=== PATIENT | female | born 1965 | race Caucasian/White ===

== ENCOUNTER → 2019-02-15 15:36 | Outpatient (CLI) | payer OTHER, SELFPAY ==
--- NOTE | 2019-02-15 15:40 | DI.RAD.S_ITS ---
PROCEDURE: XR FOOT RT MIN 3V INDICATIONS: jammed foot, pain, swelling, to distal plantar aspect r/o fx TECHNIQUE: 3 views of the foot were acquired. COMPARISON: None. FINDINGS: Bones: No fractures or dislocations. No suspicious bony lesions. Chronic appearing spurring and/or ununited osteophyte seen at the second and third MTP joints as well as the great toe interphalangeal joint. Soft tissues: No tibiotalar joint effusion. Achilles tendon appears normal. IMPRESSION: No fracture. If the patient's symptoms do not improve recommend followup radiographs in 10 days to assess for healing sclerosis/occult injury. Dictated by: Joseph Moya M.D. on 02/15/2019 at 16:23 Approved by: Joseph Moya M.D. on 02/15/2019 at 16:26
== END ==
PROVIDERS: Visit Provider Physician Assistant
DX: S99.921A Unspecified injury of right foot, initial encounter (principal); M79.671 Pain in right foot; M79.89 Other specified soft tissue disorders; W22.8XXA Striking against or struck by other objects, initial encounter
CPT/HCPCS: 73630

== ENCOUNTER → 2019-12-06 12:28 | Outpatient (CLI) | payer OTHER, SELFPAY ==
--- NOTE | 2019-12-06 12:29 | DI.RAD.S_ITS ---
PROCEDURE: XR HAND RT MIN 3V INDICATIONS: fall, proximal palm of hand pain, r/o fx TECHNIQUE: 3 views of the hand(s) acquired. COMPARISON: None. FINDINGS: Bones: No fractures or dislocations. Carpal bones are normally aligned. No suspicious bony lesions. Soft tissues: No suspicious soft tissue calcifications. IMPRESSION: No acute right hand fracture or dislocation. Dictated by: Terell Viveros M.D. on 12/06/2019 at 12:09 Approved by: Terell Viveros M.D. on 12/06/2019 at 12:11
--- NOTE | 2019-12-06 12:29 | DI.RAD.S_ITS ---
PROCEDURE: XR TIBIA FIBULA RT 2V INDICATIONS: fall, r/o fx distal knee pain TECHNIQUE: 2 views of the tibia and fibula were acquired. COMPARISON: None. FINDINGS: Bones: No fractures or dislocations. No suspicious bony lesions. Soft tissues: No suspicious soft tissue calcifications or masses. IMPRESSION: No acute lower leg fracture or dislocation. Dictated by: Terell Viveros M.D. on 12/06/2019 at 12:32 Approved by: Terell Viveros M.D. on 12/06/2019 at 12:39
--- NOTE | 2019-12-06 12:29 | DI.RAD.S_ITS ---
PROCEDURE: XR KNEE LT 3V INDICATIONS: fall, proximal palm of hand pain, r/o fx TECHNIQUE: 3 views of the knee were acquired. COMPARISON: None. FINDINGS: Bones: No fractures or dislocations. No suspicious bony lesions. Soft tissues: No joint effusion. No suspicious soft tissue calcifications. IMPRESSION: No acute left knee fracture or dislocation. No joint effusion. Dictated by: Terell Viveros M.D. on 12/06/2019 at 12:12 Approved by: Terell Viveros M.D. on 12/06/2019 at 12:32
--- NOTE | 2019-12-06 12:29 | DI.RAD.S_ITS ---
PROCEDURE: XR WRIST RT MIN 3V INDICATIONS: fall, proximal palm of hand pain, r/o fx TECHNIQUE: 4 views of the wrist were acquired. COMPARISON: None. FINDINGS: Bones: No fractures or dislocations. No suspicious bony lesions. Scaphoid view: Scaphoid is grossly intact. Soft tissues: No suspicious soft tissue calcifications. IMPRESSION: No gross acute right wrist fracture or dislocation. Dictated by: Terell Viveros M.D. on 12/06/2019 at 12:11 Approved by: Terell Viveros M.D. on 12/06/2019 at 12:12
== END ==
PROVIDERS: Referring Provider Physician Assistant; Visit Provider Physician Assistant
DX: S89.92XA Unspecified injury of left lower leg, initial encounter (principal); S69.91XA Unspecified injury of right wrist, hand and finger(s), initial encounter; W19.XXXA Unspecified fall, initial encounter
CPT/HCPCS: 73110; 73130; 73562; 73590

== ENCOUNTER → 2021-01-27 13:10 | Outpatient (CLI) | payer OTHER, SELFPAY ==
--- NOTE | 2021-01-27 13:14 | DI.RAD.S_ITS ---
PROCEDURE: XR ELBOW LT MIN 3V INDICATIONS: L elbow pain TECHNIQUE: 3 views of the elbow were acquired. COMPARISON: None. FINDINGS: Bones: No acute fractures or dislocations. No suspicious bony lesions. Soft tissues: No elbow joint effusion. No suspicious soft tissue calcifications. IMPRESSION: No acute osseous abnormality. If clinical suspicion and/or symptoms persist, additional imaging with repeat plain films, or advanced imaging (e.g. CT, MRI) may be helpful for further assessment. Dictated by: Nagi Buck M.D. on 01/27/2021 at 13:30 Approved by: Nagi Buck M.D. on 01/27/2021 at 13:30
== END ==
PROVIDERS: Referring Provider Physician Assistant; Visit Provider Physician Assistant
DX: M25.522 Pain in left elbow (principal)
CPT/HCPCS: 73080

== ENCOUNTER → 2024-02-18 12:09 | Outpatient (CLI) | payer OTHER, SELFPAY ==
--- NOTE | 2024-02-18 12:13 | DI.RAD.S_ITS ---
PROCEDURE: XR ELBOW RT 2V INDICATIONS: Pain in right elbow and forearm TECHNIQUE: 2 views of the elbow were acquired. COMPARISON: None. FINDINGS: Bones: No fractures or dislocations. No suspicious bony lesions. Soft tissues: No elbow joint effusion. No suspicious soft tissue calcifications. IMPRESSION: No acute bony abnormality or significant joint effusion. Dictated by: Aylin Lo M.D. on 02/19/2024 at 9:33 Approved by: Aylin Lo M.D. on 02/19/2024 at 9:33
--- NOTE | 2024-02-18 12:13 | DI.RAD.S_ITS ---
PROCEDURE: XR FOREARM RT 2V INDICATIONS: Pain in right elbow and forearm TECHNIQUE: 2 views of the forearm were acquired. COMPARISON: None. FINDINGS: Bones: No fractures or dislocations. No suspicious bony lesions. Soft tissues: No suspicious soft tissue calcifications or masses. IMPRESSION: No acute bony abnormality. Dictated by: Aylin Lo M.D. on 02/19/2024 at 9:34 Approved by: Aylin Lo M.D. on 02/19/2024 at 9:34
== END ==
PROVIDERS: PCP Family Medicine; Referring Provider Nurse Practitioner Family; Visit Provider Nurse Practitioner Family
DX: M77.11 Lateral epicondylitis, right elbow (principal); M79.631 Pain in right forearm; M25.521 Pain in right elbow; G89.29 Other chronic pain
CPT/HCPCS: 73070; 73090